=== PATIENT | female | born 1945 | race Caucasian/White ===

== ENCOUNTER → 2017-11-11 17:00 | Outpatient (CLI) | payer MEDICARE, OTHER ==
[2014-09-12 06:17] VITALS: BMI 27.5
[~2017-11-11 17:00] MED LIST: ASPIRIN EC325 M1 PO; CELEBREX200 MG PO; CYCLOBENZAPRINE10 MG PO; DIOVAN80 MG PO; NIASPAN1000 MG PO; PREMARIN0.45 MG PO; PRILOSEC20 MG PO; SALAGEN5 MG PO; SYNTHROID175 MCG PO; krill oil OR
== END | disposition home or self-care (01) ==
LOC: D.MAMMO 15:30
DX: Z12.31 Encounter for screening mammogram for malignant neoplasm of breast (principal)

== ENCOUNTER 2019-09-14 19:25 | Outpatient (CLI) | payer MEDICARE, OTHER ==
[2014-09-12 06:17] VITALS: BMI 27.5
== END 2019-09-14 23:59 | disposition home or self-care (01) ==
LOC: D.MAMMO 19:25
PROVIDERS: ATTEND Family Medicine
DX: Z12.31 Encounter for screening mammogram for malignant neoplasm of breast (principal)

== ENCOUNTER 2021-02-17 14:30 | Outpatient (CLI) | payer MEDICARE, OTHER ==
[2014-09-12 06:17] VITALS: BMI 27.5
== END 2021-02-17 23:59 | disposition home or self-care (01) ==
LOC: D.MAMMO 14:30
PROVIDERS: ATTEND Family Medicine
DX: Z12.31 Encounter for screening mammogram for malignant neoplasm of breast (principal)